=== PATIENT | male | born 1950 | race African-American/Black ===

== ENCOUNTER 2021-01-13 10:48 | Outpatient (CLI) | payer MEDICARE | END 2021-01-13 10:49 | disposition home or self-care (01) | LOC: CSHMRI 10:48 | PROVIDERS: ATTEND Family Medicine | DX: R41.3 Other amnesia (principal) | CPT/HCPCS: 70551 ==

== ENCOUNTER 2021-10-08 10:36 | Outpatient (CLI) | payer MEDICARE ==
[2021-10-08 11:18] LABS: Estimated GFR-MDRD - POC Greater than 90
== END 2021-10-08 10:37 | disposition home or self-care (01) ==
LOC: CSHMRI 10:36
PROVIDERS: ATTEND Urology
DX: C61 Malignant neoplasm of prostate (principal)
CPT/HCPCS: 72197; 82565

== ENCOUNTER 2024-10-03 20:08 | Emergency (ER) | payer MEDICARE ==
[2024-10-03] MEDS ORDERED: Phenazopyridine HCl 95 MG TAB ONE (23:53)
== END 2024-10-04 00:09 | disposition home or self-care (01) ==
LOC: CSHERS 20:08
DX: T83.031A Leakage of indwelling urethral catheter, initial encounter (principal); E11.9 Type 2 diabetes mellitus without complications; I10 Essential (primary) hypertension
CPT/HCPCS: 99283